=== PATIENT | female | born 1985 | race Caucasian/White ===

== ENCOUNTER → 2017-10-11 21:21 | Outpatient (CLI) | payer BC, MEDICAID, SELFPAY ==
[2017-10-15 13:54] LABS: HPV APTIMA, High Risk Negative (Negative)
== END ==
PROVIDERS: Visit Provider Obstetrics & Gynecology
DX: Z12.4 Encounter for screening for malignant neoplasm of cervix (principal); N39.46 Mixed incontinence
CPT/HCPCS: 87086; 88175; G0145

== ENCOUNTER → 2020-01-29 08:54 | Outpatient (CLI) | payer MEDICAID, SELFPAY ==
[2020-01-29 08:24] VITALS: BMI 38.4
[2020-01-29 09:43] LABS: Vitamin D,25 Hydroxy 31.3 ng/mL
[2020-01-29 09:45] LABS: Cholesterol 182 mg/dL (200); Glucose 99 mg/dL (74-106); High Density Lipoprotein 34 mg/dL; Triglycerides 458 mg/dL
[2020-02-04 07:06] LABS: HPV APTIMA, High Risk Negative (Negative)
== END ==
PROVIDERS: Referring Provider Obstetrics & Gynecology; Visit Provider Obstetrics & Gynecology
DX: R87.610 Atypical squamous cells of undetermined significance on cytologic smear of cervix (ASC-US) (principal); Z13.21 Encounter for screening for nutritional disorder; Z13.220 Encounter for screening for lipoid disorders; Z13.1 Encounter for screening for diabetes mellitus
CPT/HCPCS: 36415; 80061; 82306; 82947; 87624; 88175; G0145

== ENCOUNTER → 2023-02-12 | Outpatient (CLI) | payer MEDICAID, SELFPAY ==
[2023-02-17 21:07] LABS: HPV APTIMA, High Risk Negative (Negative)
== END | disposition home or self-care (01) ==
PROVIDERS: PCP Internal Medicine; Referring Provider Obstetrics & Gynecology; Visit Provider Obstetrics & Gynecology
DX: Z01.419 Encounter for gynecological examination (general) (routine) without abnormal findings (principal)
CPT/HCPCS: 87624; 88175; G0145

== ENCOUNTER 2025-05-22 11:05 | Day surgery (SDC) | payer MEDICAID, SELFPAY ==
[2025-05-16 13:02] LABS: Hematocrit 40.5 % (37-47); Hemoglobin 13.4 g/dL (12.0-15.0); Mean Corp Hgb Conc 33.1 g/dL (32-36); Mean Corpuscular Volume 84.7 fL (81-99); Mean Platelet Vol. 9.2 fl (6.2-12.0); Platelet Count 326 K/mm3 (150-450); RBC Distribution Width CV 13.3 % (11.6-14.6); RBC Distribution Width SD 41.3 fl (35.1-43.9); Red Blood Count 4.78 M/mm3 (4.2-5.4); White Blood Count 6.9 K/mm3 (4.4-11.0)
[2025-05-22] VITALS (11 sets, daily range): BP systolic 115–135; BP diastolic 57–91; PULSE 45–96; RESP 16–20; TEMP 36.4–37; O2SAT 96–99; BMI 32.7
[2025-05-22 11:33] LABS: Internal QC Validated? YES +Cl - CLEAR BKGD; Pregnancy, Urine Negative Negative; Record Kit Lot#,Urine Preg 0000980607
[2025-05-22] MEDS: Lactated Ringers 1,000 ML 15 ML IV (11:52)
--- NOTE | 2025-05-22 12:18 | PCM.HP.BLA ---
History and Physical Vital Signs 04/06/2513:44 05/07/2511:47 Height 5 ft 6 in 5 ft 6 in Weight: 204 lb 7 oz BMI 33.0 BP 114/82 H Intake Visit Reasons: BS title 19 is signed Shift Supervisor Film Processing Required: No Is patient in pain?: No Allergies No Known Allergies Allergy (Verified 04/06/25 13:41) Medications Medication Instructions Recorded Confirmed Type gabapentin 300 mg capsule 300 mg PO TID 10/11/17 04/06/25 History fenofibrate 54 mg tablet 54 mg PO DAILY 02/06/21 04/06/25 History loratadine 10 mg tablet (Claritin) 10 mg PO DAILY 02/10/22 04/06/25 History atomoxetine 25 mg capsule 25 mg PO ONCE 02/12/23 04/06/25 History (Strattera) calcium 600 mg (as cap PO 03/20/24 04/06/25 History carbonate)-vitamin D3 5 mcg (200 unit) capsule oxybutynin chloride 10 mg See Rx Instructions .Route 03/20/24 04/06/25 Rx tablet,extended release 24 hr .COMPLEX #30 tabs bupropion HCl 75 mg tablet 150 mg PO BID 05/07/25 05/07/25 History buspirone 5 mg tablet 10 mg PO BID 05/07/25 05/07/25 History Post menopausal: No Patient : No : No PFSH Medical History Hyperlipidemia Anxiety and depression Neuropathy Surgical History Hx of appendectomy Hx of cholecystectomy S/P surgical manipulation of ankle joint Social History housing: house number of children: 2 current occupation: Nursing graduate Smoking Status: Never smoker alcohol intake: never substance use type: does not use caffeine: Yes what type of physical activity do you participate in: walking frequency: 1-2 times per week seatbelt use: always do you feel safe at home: Yes additional social history: Patient is unemployed HPI BS title 19 is signed Details: AMADO PINA is a 39 year old who presents for sterilization consent planning laparosocpic BS. Female Reproductive History Menopausal Symptoms: No night sweats History 3 Elective abortions Hx Para 2 Spontaneous abortions Hx # Term Pregnancies Ectopic pregnancies Hx # Pregnancies Multiple births # of living children 2 Past Pregnancies Del. Date Name GA/Weeks Outcome Route Bth Weight Gen Labor Lgth Anesthesia Del Locatn Provider FOB Unknown Jcarlos 2012- autistic Unknown 2009 Jesus ROS Const Constitutional: Denies fatigue, night sweats, weight gain or weight loss ENT ENT: Reports system reviewed and no additional complaints, except as documented Cardio Card: Denies chest pain Resp Resp: Denies cough or dyspnea GI GI: Reports as per HPI; Denies abdominal pain, constipation, nausea or vomiting : Denies nipple discharge, urinary frequency, urinary incontinence, urinary hesitancy, urinary urgency, vaginal discharge, vaginal dryness, vaginal odor or vaginal pruritus Musc Musc: Denies arthralgias, back pain or muscle weakness Skin Skin/Breast: Denies alopecia, change in hair, dry skin, breast mass, breast pain, breast skin changes or nipple discharge Neuro Neuro: Reports system reviewed and no additional complaints, except as documented Psych Psych: Reports system reviewed and no additional complaints, except as documented Endo Endo: Denies cold intolerance, excessive sweating, heat intolerance or polydipsia Jorge/Lymph Hematologic/Lymphatic: Denies easy bleeding, Denies easy bruising and Denies lymphadenopathy Exam Const General: cooperative, healthy appearing, comfortable and no acute distress Orientation: alert HENMD Head: normal to inspection and normocephalic Ears: hearing grossly normal bilaterally and external ears normal Nose: external nose normal and nares normal Face and sinus: normal facial exam Neck Neck: normal visual inspection and no lymphadenopathy Thyroid: thyroid normal Chest Chest palpation & inspection: normal inspection of the chest Resp Effort & Inspection: normal respiratory effort Auscultation: clear to auscultation bilaterally Cardio Rate: regular rate Rhythm: regular rhythm Heart Sounds: S1 normal and S2 normal GI Inspection: normal to inspection and non-distended Palpation: soft and no hepatosplenomegaly Musc Other: gross motor intact no deficits, full bilateral strength Skin General: no rashes or lesions noted Neuro General: patient alert, patient awake, moves all extremities and no focal motor deficits Motor: muscle tone normal throughout Extrem General: normal to inspection and no pedal edema Psych Appearance: grossly normal Mental Status: mental status grossly normal Affect: normal affect Speech and Movement: speech and movement normal Coding Level of Care Code No Charge Diagnoses Contraception management Z30.9 Contraceptive encounter type: surveillance Assessment and Plan Assessment and Plan (1) Contraception management: Status: Acute Qualifiers: Contraceptive encounter type: surveillance Comment: apri. discussed sterilization if desired Plan After discussing the patient's diagnosis and treatment plan options, patient wishes to proceed with surgical management. I have discussed with the patient the risks, benefits, and alternatives of the procedure which include but are not limited to risks of anesthesia, bleeding, infection, possible damage to bowel, bladder, or surrounding vasculature which could lead to additional surgery to evaluate any complications. Patient agrees to procedure and wishes to proceed. ACOG/uptodate references given for additional information regarding procedure. UPDATE- I have seen the patient and performed any clinically relevant updates to the history and physical exam. Orquidea Whitmore MD
--- NOTE | 2025-05-22 12:20 | PCM.PRE.AN2 ---
ASA Classification* ASA Classification ASA Classification: 2 Assessment & Plan Anesthesia* Anesthesia Assessment Anesthesia Assessment: Discussed sedation and/or anesthesia options, risks, benefits, and alternatives with patient/parents/legal guardian/POA. Questions invited. The patient/parents/legal guardian/POA seems to understand and agrees to proceed with anesthesia plan. Reviewed the physical assessment, medical history, allergy history and patient home medications list prior to surgery/procedure/anesthetic and documented any changes. Performed airway and anesthesia risk assessments. Anesthesia Type Anesthesia Type: General History Source History Obtained from:: Patient and Chart Anesthesia Focused Assessment* Temperature: 98.6 F Pulse Rate: 79 Blood Pressure: 118/57 Respiratory Rate: 16 Pulse Ox: 98 Oxygen Delivery Method: Room Air Airway Assessment Mouth opens: >3 cm Mallampati Score: III Teeth Condition: Caps/Crowns (Patient has a right upper crown. It is tight. Patient has crowns on the front incisors #8 9. They are tight.) and Missing (1 missing right lower molar. Rest of the teeth are tight.) Neck Range of motion (ROM): Limited ROM (Somewhat Decreased) Labs Anesthesia Preop lab: CBC WBC, (4.4-11.0) 6.9 K/mm3 05/16/25, 12:40 RBC, (4.2-5.4) 4.78 M/mm3 05/16/25, 12:40 Hgb, (12.0-15.0) 13.4 g/dL 05/16/25, 12:40 Hct, (37-47) 40.5 % 05/16/25, 12:40 Plt Count, (150-450) 326 K/mm3 05/16/25, 12:40 CHEMISTRY Glucose, (74-106) 99 mg/dL 01/29/20, 09:01 COAG Urine Test Negative Negative Today, 11:20 Pre-Assessment Diagnosis/Proposed Procedure Planned Operative Procedure(s): (B) Laparoscopic, Salpingectomy Anesthesia History Anesthesia History - applications project manager: Anesthesia History - applications project manager Hx Hospitalization No 05/14/25 11:07 Any Problems With Anesthesia No 05/14/25 11:07 Cholinesterase deficiency No 05/14/25 11:07 You/Your Family Experience No 05/14/25 11:07 fever (hyperthermia) with Relationship Recent Exposure to Contagious No 05/22/25 11:43 Disease Does patient have nerve No 05/14/25 11:07 stimulator Patient instructed to have device shut off --Does patient have Pacemaker No 05/22/25 11:43 or ICD? When Was Last Pacemaker Check QUESTION #4 FULL TEXT: You/Your Family Experience fever (hyperthermia) with Anesthesia Last Oral Intake Last Oral intake: Last Oral Intake NPO since 08:30 05/22/25 11:43 Meds taken in AM with sips of Yes 05/22/25 11:43 water? Meds patient instructed to see chart 05/22/25 11:43 take am of surgery Any additional information?: Yes Meds taken in AM with sips of water?: Yes PONV PONV - applications project manager: PONV - applications project manager Female Yes 05/14/25 11:07 HX of Motion Sickness No 05/14/25 11:07 HX of N/V After Surgery No 05/14/25 11:07 Non-Smoker Yes 05/14/25 11:07 Duration of Surgery greater Yes 05/14/25 11:07 than 60 minutes Number of Risk Factors 3 05/14/25 11:07 PONV Score Moderate Risk 05/14/25 11:07 Height & Weight Height & Weight: Anesthesia: Height & Weight Height 5 ft 6 in 05/22/25 11:43 Weight: 92 kg 05/22/25 11:43 Body Mass Index (BMI) 32.7 05/22/25 11:43 Respiratory Assessment Respiratory Assessment - applications project manager: Respiratory Tract Infection Hx - applications project manager Hx Respiratory Tract Infection No 05/14/25 11:07 STOP Sleep Apnea STOP Sleep Apnea - applications project manager: STOP Sleep Apnea - applications project manager Hx Hypertension No 05/14/25 11:07 Hx Sleep Apnea No 05/14/25 11:07 CPAP BIPAP Do you snore loudly (louder No 05/14/25 11:07 than talking or can be heard Do you often feel tired/ No 05/14/25 11:07 fatigued/ sleepy during daytime? Has anyone observed you stop No 05/14/25 11:07 breathing during sleep? STOP Results Negative 05/14/25 11:07 QUESTION #5 FULL TEXT : Do you snore loudly (louder than talking or can be heard through closed doors)? Tobacco Use History Tobacco Use History - applications project manager: Tobacco Use History - applications project manager Tobacco Use Smoking Status Never smoker 05/14/25 11:07 Hx Tobacco Use No 05/14/25 11:07 Years Smoking Packs Smoked per Day Smoking Cessation Date was within the last 15 years Hx Smoking Cessation Date Hx Smoking Cessation Counseling Hematologic Medial History Hematologic Hx - applications project manager: Hematologic Medical Hx - administrative program specialist Hx of Blood Transfusion No 05/14/25 11:07 Hx of Transfusion in last 3 No 05/14/25 11:07 Months Date of Last Transfusion (if within last 3 months) Ever experience any problems No 05/14/25 11:07 with transfusion(s)? Specify any problems Hx of Preganancy in last 3 N/A 05/14/25 11:07 Months Nurse Filling Out Transfusion NBUCHER 05/14/25 11:07 & Questions: Date: 05/14/25 05/14/25 11:07 Time: 11:08 05/14/25 11:07 Patient unable to answer at this time (ie. confused, unrespo /Reproduction History /Reproductive History - applications project manager: /Reproductive Hx- applications project manager Hx Now No 05/14/25 11:07 Gestational Age (in weeks): EDC: Hx Hx Para Hx Section SAB No 05/14/25 11:07 Active Medications Active Medications: Current Medications Generic Name Dose Route Start Last Admin Trade Name Freq PRN Reason Stop Dose Admin Lactated Ringer's 1,000 mls @ 15 mls/hr 05/22/25 12:00 05/22/25 11:52 IV 15 mls/hr .Q48H MARIANNA Administration PFSH Medical History Wears glasses Depression Anxiety High cholesterol History of IBS Non-smoker Hyperlipidemia Anxiety and depression Neuropathy Home Medications Medication Instructions Recorded Last Taken Type fenofibrate 54 mg tablet 54 mg PO DAILY 02/06/21 05/21/25 History loratadine 10 mg tablet (Claritin) 10 mg PO DAILY 02/10/22 05/21/25 History atomoxetine 25 mg capsule 25 mg PO ONCE 02/12/23 05/21/25 History (Strattera) calcium 600 mg (as 1 cap PO DAILY 03/20/24 05/21/25 History carbonate)-vitamin D3 5 mcg (200 unit) capsule oxybutynin chloride 10 mg See Rx Instructions .Route 03/20/24 05/21/25 Rx tablet,extended release 24 hr .COMPLEX #30 tabs bupropion HCl 75 mg tablet 150 mg PO BID 05/07/25 05/22/25 History buspirone 5 mg tablet 10 mg PO BID 05/07/25 05/22/25 History gabapentin 400 mg capsule 400 mg PO TID 05/14/25 05/22/25 History Allergy/AdvReac Type Severity Reaction Status Date / Time No Known Allergies Allergy Verified 05/22/25 11:37 Surgical History Hx of appendectomy Hx of cholecystectomy S/P surgical manipulation of ankle joint Social History housing: house number of children: 2 current occupation: Nursing graduate Smoking Status: Never smoker alcohol intake: never substance use type: does not use caffeine: Yes what type of physical activity do you participate in: walking frequency: 1-2 times per week seatbelt use: always do you feel safe at home: Yes additional social history: Patient is unemployed Review of Systems (Anesthesia) ROS Narrative System reviewed and no additional complaints, except as documented.
--- NOTE | 2025-05-22 12:30 | FALS_PTH ---
PATIENT: AMADO PINA LOC: [facility] [place] U#:[id number] AGE/SX: 39/F ROOM: RE05/22/[address]: Dr. Orquidea Whitmore MD : 1985 BED: DIS: 05/22/2025 SPEC #: [id number] RECD: 05/22/25 15:18 STATUS: ODILON RECharanjit #: [id number] EDWIN: 05/22/25 12:[address]: Orquidea Whitmore DEPT: SURGICAL PATHOLOGY RECD BY: Jaziel Flores ENTERED: 05/22/25 15:42 SP TYPE: FALL TUBES OTHR DR: ANA Grewal Tissues: A - Fallopian tube Procedures: Surgery Specimen Level II HEADER OPERATION: Laparoscopic, salpingectomy, lysis of adhesions PRE-OP DIAGNOSIS: Contraception management TISSUE SUBMITTED: A- Bilateral fallopian tubes MICROSCOPIC DIAGNOSIS A. Bilateral fallopian tubes, laparoscopic salpingectomy: * Benign fallopian tubes with complete cross sections obtained * Benign paratubal cysts MICROSCOPIC DESCRIPTION Slides are reviewed. GROSS DESCRIPTION A. Received in formalin labeled with the patient's name and date of . Designated as " bilateral fallopian tubes" are 2 pink-red fimbriated fallopian tubes, devoid of orientation measuring 5.1 x 0.9 cm and 7.2 x 0.6 cm. Paratubal cyst are identified on both fallopian tubes, 0.1 cm to 0.7 cm. Clinical Services Consultant sections are submitted in 2 cassettes as follows: A1: Devers fallopian tubeA2: Longer fallopian tube SC 05/22/2025 CPT:48004w2
[2025-05-22] MEDS: Midazolam 2 MG/2 ML Syringe IV (13:02)
[2025-05-22] MEDS: fentaNYL 100 MCG/2 ML Ampul IV (13:10)
[2025-05-22] MEDS: Lidocaine 1% (5 ml sdv) 5 ML Vial IV (13:10)
[2025-05-22] MEDS: Cefazolin 1 GM/5 ML Vial 2 GM IV (13:58)
--- NOTE | 2025-05-22 14:12 | PCM.OPRPT ---
Multi Select Codes Urinary/Genital Urinary/Genital CPT Codes: 28956 Laproscopic BS/O and Other Procedure See Report (bibiana liu) Operative Report (Standard) Operative Information Date of Procedure: 05/22/25 Pre-Operative Diagnosis: sterilization severe adhesion disease Post-Operative Diagnosis: same Surgery/Procedure Performed: laparoscopic BS and lysis of adhesions put in beat adjuster: Yes Family Intervention Specialist: Pablo Hoffman Tasks completed by first sampler: Opening & closing, Altering tissue and Insert Trochanter Additional bindery library technical assistant?: No Type of Anesthesia: General RN Documented Start/Stop Times: Operation Date: 05/22/25 12:30 Case Time Into Pre-Op 05/22/25 11:41 Out of Pre-Op 05/22/25 12:58 Anesthesia Start 05/22/25 13:01 Into Room 05/22/25 13:01 Procedure Start 05/22/25 13:28 Procedure Start Time: 13:28 Procedure Stop Time: 14:17 Select all DRAINS/GRAFTS/IMPLANTS that apply: None Estimated Blood Loss: 50 Specimen collected: Yes Description of specimen(s) removed: tubes Description of surgery: Patient was taken in the operating room and was placed under general anesthesia was prepped and draped in normal sterile fashion in the dorsal lithotomy position. Bladder was drained of clear urine and SCDs were on preoperatively. Uterus was sounded and a uterine manipulator was placed after dilating. Attention was then paid to the abdominal portion of the procedure and the umbilicus was elevated with towel clamps and injected with Marcaine and after a 5 mm incision was made and the Veress needle was entered into the abdomen confirmed to be intra-abdominal with a low opening pressure of less than 5 mmHg. Abdomen was insufflated with CO2 gas and a 5 mm optical trocar was placed under direct visualization. Left and right lower quadrant 5 mm ports were placed under direct visualization. Dense adhesions were noted the omentum to the anterior abdominal wall and also the fallopian tubes and of various to the ovarian fossa and the left sigmoid colon to the pelvic sidewall. These were all taken down and took approximately 20 minutes for adhesiolysis both with the LigaSure and with the suction face painter tool using hydrodissection. Surgiflo was used to obtain hemostasis in the right ovarian fossa and over the areas where there was some raw appearance where adhesiolysis was performed. Uterus was well visualized after the adhesiolysis and upon inspection of the pelvis after freeing up bilateral fallopian tubes of which there was significant hyperemia of the right broad ligament and tube and therefore Ancef was given intraoperatively. The right broad ligament tore in the ovarian fossa trying to perform adhesiolysis but with electrocautery and Surgiflo hemostasis was obtained both tubes were grasped and elevated and removed using the Lige sure from the broad ligament and removed through the port sites.. Excellent hemostasis was noted in the pelvis. Liver and upper abdomen were visualized notably within normal limits, some additional omental adhesions were noted up by the liver and no other gross abnormalities were seen in the abdomen. All instruments removed from the abdomen after gas was desufflated. Port sites were closed with 3-0 Monocryl Steri's and op sites were applied. All instruments removed from the vagina and patient was awoken and taken recovery in stable condition. Surgical Findings: dense omental to anterior abdominal wall adhesions right hydrosalpinx pelvic adhesive disease Complications Complications: No
--- NOTE | 2025-05-22 14:19 | DCINST_ITS ---
Discharge Instructions DC O2, CPAP, BIPAP needs Home O2 Discharge instructions: No Dressing / Incision Discharge Activity: Return to Normal Activity, May Not Drive ( while taking narcotic pain meds, when pain free), May Shower and May Take a Tub Bath (in 7 days) May resume sexual activity in: 1 week Weight Bearing Status: Full weight bearing Dressing / Incision Call your doctor if your incision/area has: Continuous Slow Oozing, Sudden Increased Bleeding, Increased Pain/ Swelling, Increased Redness and Foul Smelling Discharge Call your doctor if you observe: Fever of 101 or Higher, Using more than 1 pad per hour, Shortness of breath, Chest pain and Uncontrolled pain Suture Line Care: Avoid Pulling/Pushing and Avoid Pinching/Bending Remove Dressing in: 1 week (if present) Cleanse incision/area with: Soap & Water and Keep Dressing Clean & Dry Follow Up Care When: Call to make an appointment with your doctor for a fu/incision check in 1- 2 weeks. Test Results: Test results from this visit will be discussed in further detail at your follow- up appointment, if applicable. Discharge Plan Admission Attending Provider: Orquidea Whitmore Primary Care Provider: Erin Hutchinson Instructions Print Language: Faroese Discharge Orders/Prescriptions Prescriptions: New oxycodone-acetaminophen [Percocet] 5-325 mg tablet 1 tab PO Q4H PRN (Reason: pain) 7 Days Qty: 10 0RF naproxen 500 mg tablet 500 mg PO BID PRN PRN (Reason: Pain) Qty: 30 1RF No Action fenofibrate 54 mg tablet 54 mg PO DAILY loratadine [Claritin] 10 mg tablet 10 mg PO DAILY buspirone 5 mg tablet 10 mg PO BID bupropion HCl 75 mg tablet 150 mg PO BID Rx Instructions: 2 tablets in am, 1 tab in afternoon atomoxetine [Strattera] 25 mg capsule 25 mg PO ONCE calcium carbonate-vitamin D3 600 mg-5 mcg (200 unit) capsule 1 cap PO DAILY oxybutynin chloride 10 mg tablet extended release 24hr See Rx Instructions .ROUTE .COMPLEX Qty: 30 12RF Dose Instruction: TAKE 1 TABLET BY MOUTH ONE TIME A DAY Rx Instructions: TAKE 1 TABLET BY MOUTH ONE TIME A DAY gabapentin 400 mg capsule 400 mg PO TID Referrals / Follow Up: Parish Ortega MD [Non-Staff, Internal Medicine] Disposition Disposition (needs filled in before D/C Order can be placed): Home, Self Care
--- NOTE | 2025-05-22 14:33 | PCM.POST.ANE ---
Anesthesia: Postop Eval I Current Vital Signs Temperature: 97.5 F Pulse Rate: 48 Blood Pressure: 117/81 Respiratory Rate: 20 Pulse Ox: 98 Oxygen Delivery Method: Room Air Assessment Airway patent: Yes Spontaneous unlabored respirations: Yes Mental status: Awake and Calm nausea: No Vomiting: No Anesthesia Complication: No Fluid Hydration Crystalloid volume administer (ml): 1,000 Total IV fluid infused: 1,000 Progress Note Anesthesia document: Postop Eval 1 completed: Yes
--- NOTE | 2025-05-22 17:37 | POSTOPAN2_ITS ---
Anesthesia Postop Eval I Sum Postop Eval Completion status Anesthesia document: Postop Eval 1 completed: Yes Anesthesia Postop Eval I Summary Anesthesia Postop Eval I Summary: Anesthesia Postop Eval I: Assessment Summary Airway patent Yes 05/22/25 14:34 [email or web address] Spontaneous unlabored Yes 05/22/25 14:34 [email or web address] respirations Mental status Awake,Calm 05/22/25 14:34 [email or web address] nausea No 05/22/25 14:34 [email or web address] Vomiting No 05/22/25 14:34 [email or web address] Anesthesia Postop Eval I: Fluid Summary Crystalloid volume administer 1,000 05/22/25 14:34 [email or web address] (ml) Colloids volume administered ( ml) Blood Product volume administered (ml) Total IV fluid infused 1,000 05/22/25 14:34 [email or web address] Anesthesia Postop Eval I: Summary Notes Anesthesia Complication No 05/22/25 14:34 [email or web address] Anesthesia Complication Comment: Post-operative progress note Anesthesia: Postop Eval II Evaluation Mental status: Awake and Calm Pain Level: 0 nausea: No Vomiting: No Complications Anesthesia Complication: No
--- NOTE | 2025-05-22 17:37 | PCM.POSTANE2 ---
Anesthesia Postop Eval I Sum Postop Eval Completion status Anesthesia document: Postop Eval 1 completed: Yes Anesthesia Postop Eval I Summary Anesthesia Postop Eval I Summary: Anesthesia Postop Eval I: Assessment Summary Airway patent Yes 05/22/25 14:34 [email or web address] Spontaneous unlabored Yes 05/22/25 14:34 [email or web address] [email or web address] respirations Mental status Awake,Calm 05/22/25 14:34 [email or web address] nausea No 05/22/25 14:34 [email or web address] [email or web address] Vomiting No 05/22/25 14:34 [email or web address] [email or web address] Anesthesia Postop Eval I: Fluid Summary Crystalloid volume administer 1,000 05/22/25 14:34 [email or web address] [email or web address] (ml) Colloids volume administered ( ml) Blood Product volume administered (ml) Total IV fluid infused 1,000 05/22/25 14:34 BARREL [email or web address] Anesthesia Postop Eval I: Summary Notes Anesthesia Complication No 05/22/25 14:34 BARREL [email or web address] Anesthesia Complication Comment: Post-operative progress note Anesthesia: Postop Eval II Evaluation Mental status: Awake and Calm Pain Level: 0 nausea: No Vomiting: No Complications Anesthesia Complication: No
== END 2025-05-22 16:13 | disposition home or self-care (01) ==
LOC: SDC 11:05 → AC 11:07
PROVIDERS: PCP Physician Assistant; Referring Provider Obstetrics & Gynecology; Visit Provider Obstetrics & Gynecology
PROC: (CPT 58661; principal; 2025-05-22 12:15)
DX: N83.8 Other noninflammatory disorders of ovary, fallopian tube and broad ligament (principal); K66.0 Peritoneal adhesions (postprocedural) (postinfection); Z30.2 Encounter for sterilization; N73.6 Female pelvic peritoneal adhesions (postinfective); E78.00 Pure hypercholesterolemia, unspecified; Z79.899 Other long term (current) drug therapy
CPT/HCPCS: 58661; 00840; 36415; 81025; 85027; 86850; 86900; 86901; 88302; J2405